=== PATIENT | female | born 1985 | race Caucasian/White ===

== ENCOUNTER 2018-09-17 01:04 | Emergency (ER) | payer OTHER ==
[2018-09-17] MEDS ORDERED: EPINEPHrine/PF 1 MG/1 ML 1:1000 ONE (01:21)
--- NOTE | 2018-09-17 01:29 | ED Physician Documentation ---
Allergy Symptoms - HISTORIAN Historian: patient, friend - [facility] Stated Complaint: allergic reaction Chief Complaint: Allergic Reaction Additional Information: ATGE MICRONESIAN ;INCL SHRIMP [id number] HAD GENL REYNARIA Duration: continues in ED Associated Symptoms: skin rash, facial, itching, trunk, extremities Swelling: face, tongue Shortness of Breath: moderate Trouble Swallowing/ Speaking: moderate Context: Food Exposure: shellfish Where: other (restaurant) - ROS EYES/ENT: eye redness, eye itching. denies: sore throat CVS/RESP: denies: chest pain, shortness of breath, cough GI/: denies: abdominal pain, problems urinating, vomiting, nausea CONST: no problems. denies: recent illness, fever, sweating, chills MS/SKIN/LYMPH: none, neck pain, swollen glands NEURO/PSYCH: tingling, numbness, anxiety - PAST HX Prior Allergic Reaction: none Medical History: other (ovarian cancer) Allergies/Adverse Reactions: Allergies Allergy/AdvReac Type Severity Reaction Status Date / Time clindamycin Allergy Intermediate Rash Verified 09/17/18 01:35 Home Medications: Ambulatory Orders Medication Instructions Recorded NK 09/17/18 - SOCIAL HX Smoking History: denies: non-smoker Alcohol Use: none Drug Use: none - FAMILY HX Family History: Yes - REVIEWED ASSESSMENTS Nursing Assessment Reviewed: Yes Vitals Reviewed: Yes ED Results Lab/Radiology - Orders Orders: ED Orders Category Date Time Status EPINEPHrine/PF [Adrenalin 1:1000] Med 09/17/18 01:21 Discontinued 1 mg .ROUTE .STK-MED ONE Allergy Symptons Exam - EXAM General Appearance: mild distress, anxious HEENT: ENT nml inspection, pharynx nml, angioedema, facial Skin: urticaria. No: no rash, nml color, erythema Extremities: non-tender, nml ROM, edema, hands, arms, legs Neck: No: lymphadenopathy Respiratory: no resp. distress, breath sounds nml. No: respiratory distress CVS: reg rate & rhythm, heart sounds normal Abdomen: non-tender Neuro: oriented X3, CN's nml as tested, motor nml Discharge Clincal Impression: allergic reaction shrimp [facility] restaur Referrals: Primary Doctor,No [Primary Care Provider] - 2 Days Condition: Good Disposition: 01 HOME, SELF-CARE Decision to Admit: NO Decision Time: 01:56
[2018-09-17] MEDS ORDERED: EPINEPHrine/PF 1 MG/1 ML 1:1000 SUBCUT ONE ×2 (01:53→01:59)
[2018-09-17] MEDS ORDERED: methylPREDNISolone ACETATE 80 MG/ML VIAL IM PRN (01:54)
[2018-09-17] MEDS ORDERED: methylPREDNISolone ACETATE 80 MG/ML VIAL IM ONE (02:08)
[2018-09-17 02:45] VITALS: BP 129/86
== END 2018-09-17 02:33 | disposition home or self-care (01) ==
LOC: ED 01:04
DX: T78.1XXA Other adverse food reactions, not elsewhere classified, initial encounter (principal); L50.0 Allergic urticaria; X58.XXXA Exposure to other specified factors, initial encounter
CPT/HCPCS: 96372; 99282; 99283; J0171; J1040